=== PATIENT | female | born 1985 | race African-American/Black ===

== ENCOUNTER 2018-08-11 12:32 | Emergency (ER) | payer OTHER ==
[~2018-08-11] VITALS: Ht 170.2 cm; Wt 81.8 kg
[2018-08-11 15:27] LABS: BASO % 0.3 % (0.0-1.0); EOS # 0.1 10^3/uL (0.0-0.50); EOS % 1.2 % (0.0-3.0); HEMATOCRIT 41.3 % (36.0-47.0); HEMOGLOBIN 13.4 g/dl (12.0-15.5); LYMPH % 38.3 % (24.0-44.0); MEAN CORPUSCULAR HEMOGLOBIN 27.9 pg (27.0-33.0); MEAN CORPUSCULAR HGB CONC 32.4 g/dl (32.0-36.5); MEAN CORPUSCULAR VOLUME 85.9 fl (80.0-96.0); MONO # 0.3 10^3/uL (0.0-0.8); MONO % 4.3 % (0.0-5.0); NEUTROPHILS # 4.3 10^3/uL (1.8-7.7); NEUTROPHILS % 55.6 % (36.0-66.0); PLATELET COUNT, AUTOMATED 278 10^3/uL (150-450); RED BLOOD COUNT 4.81 10^6/uL (4.00-5.40); WHITE BLOOD COUNT 7.7 10^3/uL (4.0-10.0)
[2018-08-11 15:47] VITALS: BP 130/75
== END 2018-08-11 15:52 | disposition home or self-care (01) ==
LOC: M ED 12:32
DX: N93.8 Other specified abnormal uterine and vaginal bleeding (principal); F17.210 Nicotine dependence, cigarettes, uncomplicated; Z87.19 Personal history of other diseases of the digestive system; Z88.8 Allergy status to other drugs, medicaments and biological substances

== ENCOUNTER → 2018-08-29 | Outpatient (CLI) | payer OTHER ==
--- NOTE | 2018-08-29 14:55 | REP ---
THREE-PHASE BONE SCAN OF THE HIPS AND LOWER EXTREMITIES: HISTORY: Bilateral hip pain and lumbar spine pain chronic since 2013. Question stress fracture. TECHNIQUE: 21.5 mCi technetium 99m MDP is injected and standard whole body bone scan imaging was acquired. FINDINGS: Anterior and posterior flow images at the pelvis are normal. Blood pool images show no abnormality. Delayed scan images demonstrate a normal distribution of skeletal tracer to the pelvis and hip region bilaterally. There is uptake in bilateral kidneys and in the urinary bladder. There is some asymmetry of uptake in the anterior and lateral aspect of the tibial plateau on the left which could be a is stress injury. Tib/fib uptake is otherwise normal. IMPRESSION: Increased uptake on blood pool and delayed scans in the anterolateral tibial plateau on the left which may be a repetitive stress injury. Correlation with radiographs recommended. Electronically Signed by Santiago Gordillo MD 08/29/2018 03:34 P
== END ==
LOC: M RAD 10:13
PROVIDERS: ATTEND Clinical Nurse Specialist Psychiatric/Mental Health, Adult
DX: M54.5 Low back pain (principal); M25.551 Pain in right hip; M25.552 Pain in left hip
CPT/HCPCS: 78315; A9503